=== PATIENT | male | born 1970 | race Caucasian/White ===

== ENCOUNTER 2017-01-01 08:01 | Emergency (ER) | payer BC ==
[2017-01-01 08:14] VITALS: BP 152/89
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
== END 2017-01-01 08:54 | disposition home or self-care (01) ==
LOC: UCCORT 08:01
DX: L20.9 Atopic dermatitis, unspecified (principal); H66.41 Suppurative otitis media, unspecified, right ear; F10.99 Alcohol use, unspecified with unspecified alcohol-induced disorder; F17.210 Nicotine dependence, cigarettes, uncomplicated
CPT/HCPCS: 99212; G0463